=== PATIENT | male | born 1990 | race Caucasian/White ===

== ENCOUNTER → 2025-01-10 08:52 | Outpatient (REF) | payer OTHER, SELFPAY | LOC: HWRAD 08:52 | PROVIDERS: ATTENDING PHYSICIAN Nurse Practitioner Family | DX: N50.89 Other specified disorders of the male genital organs (principal); N50.811 Right testicular pain | CPT/HCPCS: 76870; 93976 ==

== ENCOUNTER 2025-09-19 06:33 | Day surgery (SDC) | payer OTHER, SELFPAY ==
[2025-09-19] VITALS (8 sets, daily range): BP systolic 96–135; BP diastolic 57–88; BMI 25.8
[2025-09-19] MEDS: NORMOSOL-R/PLASMALYTE-A 1000 IV (12:47)
[2025-09-19] MEDS: ROXICODONE 5 MG PO (16:21)
== END 2025-09-19 16:36 | disposition home or self-care (01) ==
LOC: SDS 06:33
PROVIDERS: ATTENDING PHYSICIAN Urology
DX: N43.3 Hydrocele, unspecified (principal)
CPT/HCPCS: 55040